=== PATIENT | female | born 2000 ===

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

== ENCOUNTER 2021-02-23 12:55 | Outpatient (CLI) | payer MEDICAID ==
[~2021-02-23] VITALS: Ht 152.4 cm; Wt 68.5 kg
[~2021-02-23 12:55] MED LIST changes: +PREN-98 PO
[2021-02-23 13:18] VITALS: BP 129/88
[2021-02-23 13:34] LABS: BILIRUBIN,URINE NEGATIVE (NEGATIVE); CLARITY,URINE CLEAR; COLOR,URINE YELLOW; GLUCOSE, URINE (UA) NEGATIVE (NEGATIVE); KETONES,URINE NEGATIVE (NEGATIVE); LEUKOCYTE ESTERASE ,URINE NEGATIVE (NEGATIVE); NITRITE,URINE NEGATIVE (NEGATIVE); PROTEIN,URINE NEGATIVE (NEGATIVE)
[2021-02-23 13:43] VITALS: BP 129/88
[2021-02-23 13:47] LABS: BACTERIA,URINE NEGATIVE /HPF
[2021-02-23] MEDS ORDERED: DOCU-143 PO (13:50)
[2021-02-23 13:56] VITALS: BP 114/79
[2021-02-23 14:33] VITALS: BP 122/85
[2021-02-23 14:43] VITALS: BP 120/86
== END 2021-02-23 14:50 | disposition home or self-care (01) ==
LOC: WSo 12:55 → LDRP 13:08 → WSo 13:08
PROVIDERS: ATTEND Family Medicine
DX: Z34.90 Encounter for supervision of normal pregnancy, unspecified, unspecified trimester (principal); Z3A.00 Weeks of gestation of pregnancy not specified
CPT/HCPCS: 81000

== ENCOUNTER 2021-02-24 23:55 | Inpatient (IN) | payer MEDICAID ==
[~2021-02-24] VITALS: Ht 152.4 cm; Wt 68.0 kg
[~2021-02-24 23:55] MED LIST changes: +DOCU-143 PO
[2021-02-25] VITALS (41 sets, daily range): BP systolic 107–150; BP diastolic 61–100
[2021-02-25] MEDS ORDERED: MINERAL OIL CONCENTRATE 99.9% 15 ML UDC TOP PRN (00:45)
[2021-02-25] MEDS: D5 LR IV SOLUTION 1,000 ML IV SCH ×2 (01:00→09:02)
[2021-02-25 01:08] LABS: BASOPHILS % (AUTO) 0 % (0-10); EOSINOPHILS # (AUTO) 0.1 10^3/uL (0.0-0.3); EOSINOPHILS % (AUTO) 1 % (0-10); HEMATOCRIT 30 % (35-52); HEMOGLOBIN 9.3 g/dL (11.5-16.0); LYMPHOCYTES # (AUTO) 1.9 10^3/uL (1.0-4.0); LYMPHOCYTES % (AUTO) 15 % (12-44); MEAN CORPUSCULAR HEMOGLOBIN 24 pg (25-34); MEAN CORPUSCULAR HGB CONC 31 g/dL (32-36); MEAN CORPUSCULAR VOLUME 78 fL (80-99); MEAN PLATELET VOLUME 12.4 fL (9.0-12.2); MONOCYTES # (AUTO) 0.7 10^3/uL (0.0-1.0); MONOCYTES % (AUTO) 6 % (0-12); NEUTROPHILS # (AUTO) 9.7 10^3/uL (1.8-7.8); NEUTROPHILS % (AUTO) 77 % (42-75); PLATELET COUNT 286 10^3/uL (130-400); WHITE BLOOD COUNT 12.6 10^3/uL (4.3-11.0)
[2021-02-25 01:09] LABS: BILIRUBIN,URINE NEGATIVE (NEGATIVE); CLARITY,URINE CLEAR; COLOR,URINE YELLOW; GLUCOSE, URINE (UA) NEGATIVE (NEGATIVE); KETONES,URINE NEGATIVE (NEGATIVE); LEUKOCYTE ESTERASE ,URINE NEGATIVE (NEGATIVE); NITRITE,URINE NEGATIVE (NEGATIVE); PH,URINE 6.5 (5-9); PROTEIN,URINE TRACE (NEGATIVE)
[2021-02-25 01:15] LABS: RBC,URINE RARE /HPF; WBC,URINE 0-2 /HPF
[2021-02-25 01:16] LABS: BACTERIA,URINE TRACE /HPF
[2021-02-25] MEDS ORDERED: CATHETER FLUSH 10 ML SYR IV SCH ×2 (06:00→22:00)
--- NOTE | 2021-02-25 08:21 | History & Physical-OB ---
OB - Chief Complaint & HPI Date/Time Date of Admission: Date of Admission: Feb 25, 2021 at 00:30 Date seen by a Provider: Feb 25, 2021 Time Seen by a Provider: 07:50 Chief Complaint/History OB-Reason for Admission/Chief: Onset of Labor Hx : 1 Hx Para: 0 Expected Date of Delivery: Mar 03, 2021 Gestational Age in Weeks: 39 Gestational Age in Days: 1 Other reason for admission: Onset of labor. Patient started having contractions yesterday aroun 9-10 PM and they have been stronger and closer together. Denies any LOF, Vag bleeding. Feeling baby move. History of Labs O+, Ab neg, Rub Imm, HIV/RPR/HepB/C NR, GC/Chyl neg Normal 1 hr GTT GBS Neg Allergies and Home Medications Allergies Coded Allergies: No Known Drug Allergies (Unverified , 01/03/11) Patient Home Medication List Home Medication List Reviewed: Yes Docusate Sodium (Colace) 100 Mg Capsule, 100 MG PO DAILY PRN for CONSTIPATION- 1ST LINE, (Reported) Entered as Reported by: PAULA GALDAMEZ on 02/23/21 1350 Last Action: Reviewed Vit37/Iron/Folic Acid ([place] Chewable Tablet) 1 Each Tab.chew, 1 EACH PO DAILY, (Reported) Entered as Reported by: SILVERIO CAGE on 11/21/20 0306 Last Action: Reviewed OB - History Hx of Present Care: Yes Ultrasounds: Normal mid trimester US Obstetrical Complications: None Medical Complications: None Obstetrical History Hx : 1 Number of Living Children: 0 Patient Past Medical History NA Social History/Family History Alcohol Use: Denies Use Recreational Drug Use: No Smoking Cessation: Never smoker 2nd Hand Smoke Exposure: No Immunizations Tetanus Booster (TDap): Less than 5yrs Date of Influenza Vaccine: Jan 04, 2021 Rubella: immune RPR/VDRL: Negative GBS Status: Negative HBsAG: Negative OB - Admission Exam Physical Exam Vitals: Vital Signs 02/25/21 02/25/21 06:15 06:45 Temp 36.6 Pulse 96 Resp 18 B/P (MAP) 134/100 (111) Pulse Ox 99 O2 Delivery Room Air HEENT: NCAT Heart: Rhythm Normal Lungs: Clear Abdomen: Gravid Cervical Dilatation: 7cm Effacement: 75% Station: 0 Membranes: Intact Accelerations: Accelerations Present Decelerations: No Decelerations Short Term Variability: Present Sap Technical Developer Variability: Average (6-25) Contractions on Admission: < 5 Minutes Apart Intensity: Moderate Labs Laboratory Tests Test 02/25/21 00:20 Range/Units White Blood Count 12.6 H 4.3-11.0 10^3/uL Red Blood Count 3.85 3.80-5.11 10^6/uL Hemoglobin 9.3 L 11.5-16.0 g/dL Hematocrit 30 L 35-52 % Mean Corpuscular Volume 78 L 80-99 fL Mean Corpuscular Hemoglobin 24 L 25-34 pg Mean Corpuscular Hemoglobin Concent 31 L 32-36 g/dL Red Cell Distribution Width 16.2 H 10.0-14.5 % Platelet Count 286 130-400 10^3/uL Mean Platelet Volume 12.4 H 9.0-12.2 fL Immature Granulocyte % (Auto) 1 % Neutrophils (%) (Auto) 77 H 42-75 % Lymphocytes (%) (Auto) 15 12-44 % Monocytes (%) (Auto) 6 0-12 % Eosinophils (%) (Auto) 1 0-10 % Basophils (%) (Auto) 0 0-10 % Neutrophils # (Auto) 9.7 H 1.8-7.8 10^3/uL Lymphocytes # (Auto) 1.9 1.0-4.0 10^3/uL Monocytes # (Auto) 0.7 0.0-1.0 10^3/uL Eosinophils # (Auto) 0.1 0.0-0.3 10^3/uL Basophils # (Auto) 0.0 0.0-0.1 10^3/uL Immature Granulocyte # (Auto) 0.1 0.0-0.1 10^3/uL Urine Color YELLOW Urine Clarity CLEAR Urine pH 6.5 5-9 Urine Specific [place] 1.020 1.016-1.022 Urine Protein TRACE H NEGATIVE Urine Glucose (UA) NEGATIVE NEGATIVE Urine Ketones NEGATIVE NEGATIVE Urine Nitrite NEGATIVE NEGATIVE Urine Bilirubin NEGATIVE NEGATIVE Urine Urobilinogen 0.2 < = 1.0 MG/DL Urine Leukocyte Esterase NEGATIVE NEGATIVE Urine RBC (Auto) NEGATIVE NEGATIVE Urine RBC RARE /HPF Urine WBC 0-2 /HPF Urine Squamous Epithelial Cells 2-5 /HPF Urine Crystals NONE /LPF Urine Bacteria TRACE /HPF Urine Casts NONE /LPF Urine Mucus MODERATE H /LPF Urine Culture Indicated NO OB - Assessment/Plan/Diagnosis Assessment Assessment: active labor Admission Dx Third Trimester 39 week gestation Admission Status: Inpatient Order (span 2 midnights) Reason for Inpatient Admission: Labor Plan Plan: Expectant Management Other Plan 21 yo G1 @ 39.1 wga here for Active Labor Plan - Expectant Management - Ok for epidural at patient's request - GBS neg TERESA KERR MD Feb 25, 2021 08:20
[2021-02-25] MEDS ORDERED: fentaNYL 2 mcg/ml BUPIVA 0.125 100 ML ONE (08:25)
[2021-02-25] MEDS ORDERED: fentaNYL INJ 100 MCG/2 ML AMP ONE (08:42)
[2021-02-25] MEDS ORDERED: BUPIVACAINE 0.25% 30 ML (SENSORCAINE) VIAL ONE (08:43)
[2021-02-25] MEDS ORDERED: ONDANSETRON 4 MG/2 ML (SDV) Z0FRAN IV PRN (09:15)
[2021-02-25] MEDS ORDERED: diphenhydrAMINE 50 MG/ML INJ (BENADRYL) IV PRN (09:15)
[2021-02-25] MEDS ORDERED: NALOXONE 0.4 MG/ML 1 ML (NARCAN) VIAL IV PRN (09:15)
[2021-02-25] MEDS ORDERED: LACTATED RINGERS 1,000 ML IV SCH (09:15)
[2021-02-25] MEDS ORDERED: EPIDURAL (fentaNYL 2 MCG/ML BUPIVA 0.125%)100 ML BAG EPI PRN (09:15)
--- NOTE | 2021-02-25 10:25 | Labor Progress Note ---
Labor Progress Note Labor Progress Note Date Seen by Provider: Feb 25, 2021 Time Seen by Provider: 10:15 Subjective: Pt denies complaints.Comfortable with Epidural. Objective: SVE: Assessment/Plan: Ruby Pedro is a (21 /Para 1 / 0,Gestational Age (wks)39.1 here for Active Labor CEFM/TOCO AROM 1015 clear GBS neg Augement with pitocin Anesthesia: Epidural placed Anticipate vaginal delivery. Vitals - Labs Vital Signs - I&O Vital Signs Date Time Temp Pulse Resp B/P (MAP) Pulse Ox O2 Delivery O2 Flow Rate FiO2 02/25/21 06:45 96 18 134/100 (111) 99 Room Air 02/25/21 06:15 36.6 110 18 141/87 (105) 99 Room Air 02/25/21 05:45 85 18 122/61 (81) 99 Room Air 02/25/21 05:15 83 18 116/64 (81) 99 Room Air 02/25/21 04:45 36.8 92 18 128/88 (101) 99 Room Air 02/25/21 02:58 36.9 104 18 138/85 (102) 98 Room Air 02/25/21 00:20 36.8 104 18 97 Room Air 02/25/21 00:20 36.8 104 18 119/86 (97) 97 Room Air Labs Laboratory Tests 02/25/21 00:20: White Blood Count 12.6H, Red Blood Count 3.85, Hemoglobin 9.3L, Hematocrit 30L, Mean Corpuscular Volume 78L, Mean Corpuscular Hemoglobin 24L, Mean Corpuscular Hemoglobin Concent 31L, Red Cell Distribution Width 16.2H, Platelet Count 286, Mean Platelet Volume 12.4H, Immature Granulocyte % (Auto) 1, Neutrophils (%) (Auto) 77H, Lymphocytes (%) (Auto) 15, Monocytes (%) (Auto) 6, Eosinophils (%) (Auto) 1, Basophils (%) (Auto) 0, Neutrophils # (Auto) 9.7H, Lymphocytes # (Auto) 1.9, Monocytes # (Auto) 0.7, Eosinophils # (Auto) 0.1, Basophils # (Auto) 0.0, Immature Granulocyte # (Auto) 0.1, Urine Color YELLOW, Urine Clarity CLEAR, Urine pH 6.5, Urine Specific [place] 1.020, Urine Protein TRACEH, Urine Glucose (UA) NEGATIVE, Urine Ketones NEGATIVE, Urine Nitrite NEGATIVE, Urine Bilirubin NEGATIVE, Urine Urobilinogen 0.2, Urine Leukocyte Esterase NEGATIVE, Urine RBC (Auto) NEGATIVE, Urine RBC RARE, Urine WBC 0-2, Urine Squamous Epithelial Cells 2-5, Urine Crystals NONE, Urine Bacteria TRACE, Urine Casts NONE, Urine Mucus MODERATEH, Urine Culture Indicated NO TERESA KERR MD Feb 25, 2021 10:25
[2021-02-25] MEDS ORDERED: OXYTOCIN PRE-MIX DRIP 500 ML IV SCH (10:30)
[2021-02-25] MEDS ORDERED: LIDOCAINE/EPI 2% 1:200,00 (XYLOCAINE) 10 ML VIAL ONE (13:55)
[2021-02-25] MEDS: OXYTOCIN PRE-MIX DRIP 500 ML IV SCH (14:55)
--- NOTE | 2021-02-25 14:58 | OB Labor & Delivery Record ---
Vag Delivery Note Vag Delivery Note Date of Delivery: 02/25/21 Preoperative Diagnosis: Ruby Pedro is a (21 /Para 1 / 0, Gestational Age (wks)39.1 here in Active labor Postoperative Diagnosis: Same Surgeon: TERESA KERR MD Customer Support Technician: None Anesthesia: epidural Delivery Type: @ 1423 Findings: Viable female , apgars 7/9, weight 6#5, 2875 grams Lacerations left labial laceration Intact placenta with 3 vessel cord. No nuchal cord, body cord or shoulder dystocia Estimated Blood Loss: 150 ml Complications: None Condition: Stable Description of Procedure: The patient is a 21 year old female who presented in active labor. She was admitted and informed consent was obtained. Her labor course was unremarkable. She progressed to complete dilatation and began to push. She was then set up for delivery. The infant's head was delivered atraumatically in the IRV[place] position. The shoulders and remainder of the infant's body were then delivered without difficulty. Upon delivery, the head was held below the level of the perineum and the mouth and nares were bulb suctioned. The cord was doubly clamped and cut by FOB after 3 min delay and the was attended to by the pediatric staff on maternal abdomen. An intact placenta with 3-vessel cord delivered via Carlos and there was found to be minimal bleeding.~ Vigorous f undal massage was performed and the fundus was found to be firm. IV oxytocin was given. Examination of the vagina and perineum revealed a left labial laceration repaired in the usual fashion with 3-0 rapid suture. Following the repair, sponge, instrument and needle counts were correct. Mom and baby were both in stable condition in the labor suite. Vitals - Labs Vital Signs - I&O Vital Signs Date Time Temp Pulse Resp B/P (MAP) Pulse Ox O2 Delivery O2 Flow Rate FiO2 02/25/21 10:57 81 18 119/76 (90) 02/25/21 10:40 90 18 108/75 (86) 02/25/21 10:27 37.0 86 18 108/74 (85) 02/25/21 10:12 81 18 107/70 (82) 98 02/25/21 09:57 90 18 107/69 (82) 98 02/25/21 09:40 83 18 108/67 (81) 98 02/25/21 09:35 90 18 115/73 (87) 98 02/25/21 09:30 85 18 114/65 (81) 98 02/25/21 09:23 104 18 118/77 (91) 98 02/25/21 09:20 99 18 125/84 (98) 98 02/25/21 09:16 103 18 119/75 (90) 99 02/25/21 09:13 112 18 113/74 (87) 98 02/25/21 09:10 111 18 116/70 (85) 97 02/25/21 09:05 116 18 126/74 (91) 99 02/25/21 09:00 109 18 128/95 (106) 99 02/25/21 08:44 105 18 133/96 (108) 98 02/25/21 08:35 115 18 150/73 (98) 02/25/21 06:45 96 18 134/100 (111) 99 Room Air 02/25/21 06:15 36.6 110 18 141/87 (105) 99 Room Air 02/25/21 05:45 85 18 122/61 (81) 99 Room Air 02/25/21 05:15 83 18 116/64 (81) 99 Room Air 02/25/21 04:45 36.8 92 18 128/88 (101) 99 Room Air 02/25/21 02:58 36.9 104 18 138/85 (102) 98 Room Air 02/25/21 00:20 36.8 104 18 97 Room Air 02/25/21 00:20 36.8 104 18 119/86 (97) 97 Room Air Labs Laboratory Tests 02/25/21 00:20: White Blood Count 12.6H, Red Blood Count 3.85, Hemoglobin 9.3L, Hematocrit 30L, Mean Corpuscular Volume 78L, Mean Corpuscular Hemoglobin 24L, Mean Corpuscular Hemoglobin Concent 31L, Red Cell Distribution Width 16.2H, Platelet Count 286, Mean Platelet Volume 12.4H, Immature Granulocyte % (Auto) 1, Neutrophils (%) (Auto) 77H, Lymphocytes (%) (Auto) 15, Monocytes (%) (Auto) 6, Eosinophils (%) (Auto) 1, Basophils (%) (Auto) 0, Neutrophils # (Auto) 9.7H, Lymphocytes # (Auto) 1.9, Monocytes # (Auto) 0.7, Eosinophils # (Auto) 0.1, Basophils # (Auto) 0.0, Immature Granulocyte # (Auto) 0.1, Urine Color YELLOW, Urine Clarity CLEAR, Urine pH 6.5, Urine Specific [place] 1.020, Urine Protein TRACEH, Urine Glucose (UA) NEGATIVE, Urine Ketones NEGATIVE, Urine Nitrite NEGATIVE, Urine Bilirubin NEGATIVE, Urine Urobilinogen 0.2, Urine Leukocyte Esterase NEGATIVE, Urine RBC (Auto) NEGATIVE, Urine RBC RARE, Urine WBC 0-2, Urine Squamous Epithelial Cells 2-5, Urine Crystals NONE, Urine Bacteria TRACE, Urine Casts NONE, Urine Mucus MODERATEH, Urine Culture Indicated NO TERESA KERR MD Feb 25, 2021 14:58
[2021-02-25] MEDS ORDERED: BENZOCAINE/MENTHOL (DERMOPLAST) 56 ML CAN TP PRN (15:00)
[2021-02-25] MEDS ORDERED: WITCH HAZEL(TUCKS) 40 EA JAR TOP PRN (15:00)
[2021-02-25] MEDS: IBUPROFEN 600 MG (MOTRIN) TAB PO SCH ×2 (18:07→23:59)
[2021-02-25] MEDS: ACETAMINOPHEN 500 MG TAB (TYLENOL) PO SCH (20:00)
[2021-02-25] MEDS: DOCUSATE SODIUM 100 MG (COLACE) CAP PO SCH (20:00)
[2021-02-26 00:15] VITALS: BP 124/72
[2021-02-26] MEDS: ACETAMINOPHEN 500 MG TAB (TYLENOL) PO SCH ×2 (03:48→09:31)
[2021-02-26 03:50] VITALS: BP 125/79
[2021-02-26] MEDS: IBUPROFEN 600 MG (MOTRIN) TAB PO SCH ×2 (06:05→14:04)
[2021-02-26] MEDS ORDERED: PRENATAL VITAMIN 1 EA TAB PO SCH (07:00)
[2021-02-26 08:09] LABS: BASOPHILS % (AUTO) 0 % (0-10); EOSINOPHILS # (AUTO) 0.1 10^3/uL (0.0-0.3); EOSINOPHILS % (AUTO) 1 % (0-10); HEMATOCRIT 28 % (35-52); HEMOGLOBIN 8.4 g/dL (11.5-16.0); LYMPHOCYTES # (AUTO) 2.2 10^3/uL (1.0-4.0); LYMPHOCYTES % (AUTO) 18 % (12-44); MEAN CORPUSCULAR HEMOGLOBIN 24 pg (25-34); MEAN CORPUSCULAR HGB CONC 30 g/dL (32-36); MEAN CORPUSCULAR VOLUME 80 fL (80-99); MEAN PLATELET VOLUME 11.7 fL (9.0-12.2); MONOCYTES # (AUTO) 0.7 10^3/uL (0.0-1.0); MONOCYTES % (AUTO) 6 % (0-12); NEUTROPHILS # (AUTO) 9.2 10^3/uL (1.8-7.8); NEUTROPHILS % (AUTO) 75 % (42-75); PLATELET COUNT 192 10^3/uL (130-400); WHITE BLOOD COUNT 12.3 10^3/uL (4.3-11.0)
[2021-02-26] MEDS: OXYTOCIN PRE-MIX DRIP 500 ML IV SCH (08:38)
--- NOTE | 2021-02-26 08:39 | Discharge Summary ---
Diagnosis/Chief Complaint Date of Admission Feb 25, 2021 at 00:30 Date of Discharge February 26, 2021 Admission Diagnosis Admission Diagnosis 1. Intrauterine at 39 weeks gestation 2. Iron deficiency anemia Discharge Diagnosis 1. Intrauterine at 39 weeks gestation 2. Iron deficiency anemia Chief Complaint/HPI Chief Complaint/HPI 21-year-old 1 now term 1 living one who initially presented to labor and delivery during the morning of February 26, 2021 in active labor. Her EDC is March 03, 2021. care was obtained through [facility] with Dr. Haro and essentially unremarkable. Her GBS status was noted to be negative at 36 weeks. Discharge Summary-OBS Procedures 1. Spontaneous vaginal delivery 2. Repair of left labial laceration Discharge Physical Examination Allergies: Coded Allergies: No Known Drug Allergies (Unverified , 01/03/11) Vitals & I&Os Intake and Output 02/25/21 23:59 Intake Total 2000 ml Balance 2000 ml Vital Sign - Last 12Hours Date Time Temp Pulse Resp B/P (MAP) Pulse Ox O2 Delivery O2 Flow Rate FiO2 02/26/21 03:50 36.0 75 16 125/79 (94) 98 Room Air General Appearance: Alert, No Acute Distress Respiratory: Clear to Auscultation Cardiovascular: Regular Rate Abdominal: Soft (with uterus firm) Hospital Course patient presented to women's services during the morning of February 25, 2021 in active labor. She ultimately underwent amniotomy at [address] Haro and she continued to dilate and went on to completion. She ultimately delivered over a left labial laceration a term viable female with Apgars of 7 at 1 minute and 9 at 5 minutes. weight 6 lbs. 5 oz. Delivery was accomplished at 1421 \ Following delivery patient underwent routine care orders. She had no complications during the remainder of hospital stay. She was noted to have a hemoglobin of 8.4 in the morning of February 26 compared to admission of 9.3. She was asymptomatic with regard to dizziness. She tolerated regular diet and was without any chest pain or shortness of breath. She was felt ready for dismissal during the afternoon of February 26, 2021. She will follow-up with Dr. Haro in 6 weeks. Labs Laboratory Tests 02/26/21 07:25: White Blood Count 12.3H, Red Blood Count 3.46L, Hemoglobin 8.4L, Hematocrit 28L, Mean Corpuscular Volume 80, Mean Corpuscular Hemoglobin 24L, Mean Corpuscular Hemoglobin Concent 30L, Red Cell Distribution Width 16.7H, Platelet Count 192, Mean Platelet Volume 11.7, Immature Granulocyte % (Auto) 1, Neutrophils (%) (Auto) 75, Lymphocytes (%) (Auto) 18, Monocytes (%) (Auto) 6, Eosinophils (%) (Auto) 1, Basophils (%) (Auto) 0, Neutrophils # (Auto) 9.2H, Lymphocytes # (Auto) 2.2, Monocytes # (Auto) 0.7, Eosinophils # (Auto) 0.1, Basophils # (Auto) 0.0, Immature Granulocyte # (Auto) 0.1 Discharge Instructions to patient/family Please see electronic discharge instructions given to patient. Discharge Medications Reviewed and agree with Discharge Medication list on patient's Discharge Instruction sheet KAMRON CARROLL MD Feb 26, 2021 08:39
[2021-02-26] MEDS ORDERED: IBUP-844 PO (08:40)
[2021-02-26] MEDS ORDERED: FERR325T18 PO (08:40)
--- NOTE | 2021-02-26 08:41 | Discharge Inst-Women's Service ---
Discharge Inst-Women's Serv Depart Medication/Instructions New, Converted or Re-Newed RX: Transmitted to Pharmacy ([facility]) Consults/Follow Up Additional Follow Up: Yes (Dr Haro in 6 weeks.) Activity Activity: Activity as Tolerated Driving Instructions: No Driving for 1 Week Nothing Inside Vagina: No [place] (for 6 weeks) Diet Discharge Diet: Regular Diet Return to The Hospital For: as below Symptoms to Report to : Bleeding Excessive, Fever Over 101 Degrees F, Vaginal Discharge Foul, Dizziness/Fainting For Any Problems or Questions: Contact Your Physician KAMRON CARROLL MD Feb 26, 2021 08:41
[2021-02-26] MEDS: DOCUSATE SODIUM 100 MG (COLACE) CAP PO SCH (09:31)
[2021-02-26 09:39] VITALS: BP 128/72
[2021-02-26 13:59] VITALS: BP 132/80
--- NOTE | 2021-02-26 21:15 | Anesthesia-Regional Post-Op ---
Regional Patient Condition Mental Status: Alert, Oriented x3 Circulation: Same as Pre-Op Headache: Absent Sensation: Full Recovery Motor Block: Absent Post Op Complications Complications None Follow Up Care/Instructions Patient Instructions None needed. Anesthesia/Patient Condition Patient is doing well, no complaints, stable vital signs, no apparent adverse anesthesia problems. No complications reported per nursing. CHRIS PONCE CRNA Feb 26, 2021 21:15
== END 2021-02-26 17:45 | disposition home or self-care (01) | DRG 807 ==
LOC: WSo 23:55 → LDRP 23:59 → WSo 02-25 00:29 → LDRP 02-25 00:30
PROVIDERS: ADMIT Family Medicine; ATTEND Family Medicine
PROC: 10E0XZZ Delivery of Products of Conception, External Approach (ICD-10-PCS; principal; 2021-02-25)
PROC: 10907ZC Drainage of Amniotic Fluid, Therapeutic from Products of Conception, Via Natural or Artificial Opening (ICD-10-PCS; 2021-02-25)
PROC: 0UQMXZZ Repair Vulva, External Approach (ICD-10-PCS; 2021-02-25)
DX: O70.0 First degree perineal laceration during delivery (principal); Z37.0 Single live birth; Z3A.39 39 weeks gestation of pregnancy; O90.81 Anemia of the puerperium; D50.9 Iron deficiency anemia, unspecified
CPT/HCPCS: 36415; 81000; 85025; 86850; 86900; 86901; 99212